=== PATIENT | male | born 1995 | race Caucasian/White ===

== ENCOUNTER 2019-06-04 08:51 | Emergency (ER) | payer MEDICAID ==
[~2019-06-04] VITALS: Ht 195.6 cm; Wt 99.8 kg
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
[2019-06-04 09:02] VITALS: BP 136/75
--- NOTE | 2019-06-04 09:13 | NUR ---
ED Nurse Note: ERMD at bedside.
--- NOTE | 2019-06-04 09:15 | NUR ---
ED Nurse Note: [employer] at bedside.
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
--- NOTE | 2019-06-04 09:25 | NUR ---
ER DISCHARGE NOTE: Patient is cleared to be discharged per ERMD, pt is aox4, on room air, with stable vital signs. pt was given discharge instructions, pt was able to verbalize understanding, pt id band removed. pt is able to ambulate with steady gait. pt took all belongings. Patient stable upon discharge.
[2019-06-04 09:26] VITALS: BP 147/87
== END 2019-06-04 09:40 | disposition home or self-care (01) ==
LOC: EDBD 08:51 → EMR 09:39
DX: F10.10 Alcohol abuse, uncomplicated (principal); Y90.9 Presence of alcohol in blood, level not specified
CPT/HCPCS: 99282